=== PATIENT | male | born 1945 | race Caucasian/White ===

== ENCOUNTER 2018-12-26 18:53 | Observation (INO) ==
--- OUTSIDE RECORDS SUMMARY | 2018-12-26 18:56 | External Medical Summary | Continuity of Care Document ---
:1945 Author Name Anup Russo Address Unavailable Unavailable , Care Team Providers Name Role Phone NonMNPG M.D. Unavailable [email or web address] Unavailable Unavailable Problems Insomnia (780.52) (G47.00) Aortic stenosis (424.1) (I35.0) Lichen planus (697.0) (L43.9) Right ventricular dilation (429.3) (I51.7) Allergies and Adverse Reactions No Known Drug Allergies (Allergy) Medications No Reported Medications Refills: 0 Procedures History of Cholecystectomy Status: Compl eted History of Hernia Repair Status: Complet ed Immunizations Immunizations not documented Plan of Treatment Planned Observations Planned Goals not documented Results No Known Results Results not documented
[2018-12-26] MEDS ORDERED: SODIUM CHLORIDE 0.9% 1000ML 1,000 ML IV SCH (19:15)
--- NOTE | 2018-12-26 19:32 | XRay Report ---
XR chest 1V portable CLINICAL HISTORY: weakness COMPARISON STUDY: No previous studies for comparison. FINDINGS: Lung volumes are normal. There is no pneumothorax or pleural effusion. There is no consolid ation to suggest pneumonia. Note is made of a right lower mediastinal contour abnormality. Otherwise, the cardiomediastinal silhouette is unremarkable. IMPRESSION: 1. Right lower mediastinal contour abnormality. This may reflect a hiatal hernia or artifact however a nonemergent chest CT is recommended. 2. No acute cardiopulmonary findings. Electronically signed by: Marcos Gu M.D. 12/26/2018 7:31 PM
[2018-12-26 19:36] LABS: Basophils # (auto) 0.03 K/uL (0-0.2); Basophils % (auto) 0.4 %; Eosinophils # (auto) 0.14 K/uL (0-0.5); Eosinophils % (auto) 2.1 %; Hemoglobin 14.7 g/dL (14.0-18.0); Immature Granulocytes # (auto) 0.01 K/uL (0.00-0.02); Immature Granulocytes % (auto) 0.1 %; Lymphocytes # (auto) 2.14 K/uL (1.2-3.4); Lymphocytes % (auto) 31.7 %; Mean Corpuscular Hgb Conc 35.9 g/dL (32-36); Mean Corpuscular Volume 90.1 fL (80-100); Mean Platelet Volume 9.5 fL (7.4-10.4); Monocytes # (auto) 0.67 K/uL (0.11-0.59); Monocytes % (auto) 9.9 %; Neutrophils # (auto) 3.76 K/uL (1.4-6.5); Neutrophils % (auto) 55.8 %; Platelet Count 179 K/uL (130-400); RDW Coefficient of Variation 13.3 % (11.5-14.5); RDW Standard Deviation 43.4 fL (36.4-46.3); Red Blood Count 4.55 M/uL (4.7-6.1); White Blood Count 6.75 K/uL (4.8-10.8)
[2018-12-26 19:49] LABS: Partial Thromboplastin Ratio 0.9; Partial Thromboplastin Time 25.6 Seconds (21.0-31.0); Prothrombin Time 10.6 Seconds (9.0-12.0)
[2018-12-26 19:58] LABS: Troponin I < 0.015 ng/ml (0-0.045)
--- NOTE | 2018-12-26 20:15 | Emergency Department Note ---
Entered by Beth Cote acting as a scribe for History of Present Illness General Chief complaint: Cardiac Assessment Stated complaint: CHEST PAIN, IRREGULAR HEARTBEAT, DIZZY Source: patient History of Present Illness Onset (ago): hour(s) 3 Location: head Pain Consistency: + other (persistent ) Quality: + other (dizziness) Relieved By: + other (laying down) Exacerbated By: + movement Associated symptoms: + other (positive feels heart beating heavily; negative swelling in legs; negative diarrhea; negative black or bloody stools) The patient is a 73 year old male who presents to the Emergency Room with complaints of persistent dizziness that began at 1630, 3 hours prior to arrival. The patient states that laying down relieves his symptoms, and states that movement exacerbates his symptoms. The patient states that at this time he felt his heart beating heavily in his chest. The patient denies chest pain, shortness of breath, swelling in his legs, nausea, vomiting, diarrhea, and black or bloody stools. The patient denies any recent illnesses. The patient states that he has a heart murmur, and states that he previously had an echo. Home Medications Home Medications Medication Instructions Recorded Confirmed Type calcium carbonate [Tums] 200 - 400 mg PO TID PRN 12/26/18 12/26/18 History cholecalciferol (vitamin D3) 1,000 unit PO DAILY 12/26/18 12/26/18 History [Vitamin D3] ciclopirox [Ciclodan] 1 applic TOPICAL DAILY 12/26/18 12/26/18 History multivitamin 1 tab PO DAILY 12/26/18 12/26/18 History naproxen [Naprosyn] 500 mg PO BID PRN 12/26/18 12/26/18 History omega 7-xoz-nye-fish oil [Fish Oil] 1 cap PO DAILY 12/26/18 12/26/18 History rosuvastatin [Crestor] 10 mg PO DAILY 12/26/18 12/26/18 History Allergies Allergy/AdvReac Type Severity Reaction Status Date / Time No Known Allergies Allergy Unverified 12/26/18 19:47 Past Med/Surg History Medical History Heart murmur (Chronic) Surgical History S/P hernia repair (Resolved) S/P cholecystectomy (Resolved) Social History Preferred Language: Northern Irish Smoking Status: Former smoker Review of Systems See HPI for pertinent positives & negatives. and A total of 10 systems reviewed and were otherwise negative Physical Exam Vital Signs Vital Signs - 24 hr 12/26/18 18:53 12/26/18 18:56 12/26/18 19:11 Temperature 36.3 C L Temperature Source Oral Sepsis Recent Fever Within 48 Hours No Sepsis New/Unexplained Change in Mental Status No Sepsis Action Taken by Nursing No Action Required Pulse Rate 118 H Pulse Rate [Left Finger] Pulse Rhythm [Left Finger] Respiratory Rate 18 Respiratory Effort / Characteristics Non-Labored Respiratory Depth Normal Respiratory Pattern Blood Pressure 127/82 Blood Pressure [Left Arm] Blood Pressure Mean 97 Blood Pressure Mean [Left Arm] Pulse Oximetry 99 98 Oxygen Delivery Method Room Air Room Air Room Air 12/26/18 19:30 12/26/18 20:09 12/26/18 21:33 Temperature Temperature Source Sepsis Recent Fever Within 48 Hours Sepsis New/Unexplained Change in Mental Status Sepsis Action Taken by Nursing Pulse Rate Pulse Rate [Left Finger] 60 70 54 L Pulse Rhythm [Left Finger] Regular Regular Respiratory Rate 20 15 15 Respiratory Effort / Characteristics Non-Labored Non-Labored Non-Labored Respiratory Depth Normal Normal Normal Respiratory Pattern Regular Regular Regular Blood Pressure Blood Pressure [Left Arm] 115/85 110/73 106/73 Blood Pressure Mean Blood Pressure Mean [Left Arm] 95 85 84 Pulse Oximetry 100 100 100 Oxygen Delivery Method Room Air Room Air Room Air 12/26/18 22:46 12/26/18 23:32 Temperature Temperature Source Sepsis Recent Fever Within 48 Hours Sepsis New/Unexplained Change in Mental Status Sepsis Action Taken by Nursing Pulse Rate 71 Pulse Rate [Left Finger] 67 Pulse Rhythm [Left Finger] Regular Respiratory Rate 18 18 Respiratory Effort / Characteristics Non-Labored Respiratory Depth Normal Respiratory Pattern Regular Blood Pressure 112/75 Blood Pressure [Left Arm] 101/65 Blood Pressure Mean Blood Pressure Mean [Left Arm] 77 Pulse Oximetry 100 99 Oxygen Delivery Method Room Air Room Air GENERAL: Patient is awake alert in no acute distress patient is resting comfortably and showing no signs of anxiety EYES: The conjunctivae are clear. The pupils are round and reactive. EARS, NOSE, MOUTH AND THROAT: The nose is without any evidence of any deformity. Mucous membranes are moist tongue is midline NECK: The neck is nontender and supple. RESPIRATORY: Normal respiratory effort is noted there is no evidence of wheezing rhonchi or rales CARDIOVASCULAR: Irregular rhythm with tachycardic rate was noted. There was a systolic murmur suggested. GASTROINTESTINAL: The abdomen is soft. Bowel sounds are present in all quadrants. Abdomen is nontender MUSCULOSKELETAL/EXTREMITIES: There is no evidence of gross deformity full range of motion is noted in the hips and shoulders SKIN: There is no obvious evidence of any rash. Trace pedal edema was noted bilaterally. Skin was warm and dry. NEUROLOGIC: Patient is awake alert and oriented x3. Course 1910: The patient was evaluated in room A12A, and a complete history and physical examination were performed. 2133: I updated the patient and his family. 2147: I discussed the case with Dr. Pacheco-[facility] Cardiology. 2207: I discussed the case with Dr. Rosas-[facility] Hospitalist who accepts the patient for further evaluation. 4: I updated the patient and his family. Administered Medications Discontinued Medications Sodium Chloride (Nss 1000ml) 1,000 mls @ 999 mls/hr IV .Q1H1M NAI Stop: 12/26/18 20:15 Last Infusion: 12/26/18 20:20 Dose: 0 mls/hr Documented by: [id number] Admin: 12/26/18 19:30 Dose: 999 mls/hr Documented by: [id number] Medical Decision Making Differential Diagnosis Differential diagnosis: Etiologies such as premature contractions, electrolyte abnormality, cardiac dysrhythmia, thyroid dysfunction, pulmonary embolism, infection, gastrointestinal, as well as others were entertained. Medical Records Attestation: I reviewed the patient's medical records. Home Medications Current Medication List: was personally reviewed by me Laboratory Data Attestation: I reviewed the patient's lab results. Result diagrams: 12/26/18 19:12/26/18 19: Lab Results 12/26/18 12/26/18 12/26/18 Range/Units 19: 19:27 19:27 WBC 6.75 (4.8-10.8) K/uL RBC 4.55 L (4.7-6.1) M/uL Hgb 14.7 (14.0-18.0) g/dL Hct 41.0 L (42-52) % MCV 90.1 (80-100) fL MCH 32.3 (25-34) pg MCHC 35.9 (32-36) g/dL RDW Std Deviation 43.4 (36.4-46.3) fL RDW Coeff of Juan Carlos 13.3 (11.5-14.5) % Plt Count 179 (130-400) K/uL MPV 9.5 (7.4-10.4) fL Immature Gran % (Auto) 0.1 % Neut % (Auto) 55.8 % Lymph % (Auto) 31.7 % [place] % (Auto) 9.9 % Eos % (Auto) 2.1 % Baso % (Auto) 0.4 % Immature Gran # (Auto) 0.01 (0.00-0.02) K/uL Neut # (Auto) 3.76 (1.4-6.5) K/uL Lymph # (Auto) 2.14 (1.2-3.4) K/uL [place] # (Auto) 0.67 H (0.11-0.59) K/uL Eos # (Auto) 0.14 (0-0.5) K/uL Baso # (Auto) 0.03 (0-0.2) K/uL PT 10.6 (9.0-12.0) Seconds INR 1.0 (0.9-1.1) APTT 25.6 (21.0-31.0) Seconds PTT Ratio 0.9 Sodium 141 (136-145) mmol/L Potassium 3.7 (3.5-5.1) mmol/L Chloride 109 H (98-107) mmol/L Carbon Dioxide 26 (21-32) mmol/L Anion Gap 6.0 (3-11) BUN 16 (7-18) mg/dl Creatinine 1.18 (0.6-1.4) mg/dl Est Cr Clr Drug Dosing 55.8 ml/min Est GFR ( Amer) 69.5 Est GFR (Non-Af Amer) 60.0 BUN/Creatinine Ratio 13.3 (10-20) Glucose 116 H (70-99) mg/dl Calcium 8.9 (8.5-10.1) mg/dl Magnesium 2.3 (1.8-2.4) mg/dl Total Bilirubin 0.4 (0.2-1) mg/dl AST 30 (15-37) U/L ALT 28 (12-78) U/L Alkaline Phosphatase 81 (45-117) U/L Troponin I < 0.015 (0-0.045) ng/ml Total Protein 6.6 (6.4-8.2) gm/dl Albumin 3.7 (3.4-5.0) gm/dl Globulin 2.8 (2.5-4.0) gm/dl Albumin/Globulin Ratio 1.3 (0.9-2) TSH 1.700 (0.300-4.500) uIu/ml Urine Color Urine Appearance (Clear) Urine pH (4.5-7.5) Ur Specific [place] (1.000-1.030) Urine Protein (Negative) Urine Glucose (UA) (Negative) Urine Ketones (Negative) Urine Blood (Negative) Urine Nitrite (Negative) Urine Bilirubin (Negative) Urine Urobilinogen (Negative) Ur Leukocyte Esterase (Negative) 12/26/18 Range/Units 20:19 WBC (4.8-10.8) K/uL RBC (4.7-6.1) M/uL Hgb (14.0-18.0) g/dL Hct (42-52) % MCV (80-100) fL MCH (25-34) pg MCHC (32-36) g/dL RDW Std Deviation (36.4-46.3) fL RDW Coeff of [place] (11.5-14.5) % Plt Count (130-400) K/uL MPV (7.4-10.4) fL Immature Gran % (Auto) % Neut % (Auto) % Lymph % (Auto) % [place] % (Auto) % Eos % (Auto) % Baso % (Auto) % Immature Gran # (Auto) (0.00-0.02) K/uL Neut # (Auto) (1.4-6.5) K/uL Lymph # (Auto) (1.2-3.4) K/uL [place] # (Auto) (0.11-0.59) K/uL Eos # (Auto) (0-0.5) K/uL Baso # (Auto) (0-0.2) K/uL PT (9.0-12.0) Seconds INR (0.9-1.1) APTT (21.0-31.0) Seconds PTT Ratio Sodium (136-145) mmol/L Potassium (3.5-5.1) mmol/L Chloride (98-107) mmol/L Carbon Dioxide (21-32) mmol/L Anion Gap (3-11) BUN (7-18) mg/dl Creatinine (0.6-1.4) mg/dl Est Cr Clr Drug Dosing ml/min Est GFR ( Amer) Est GFR (Non-Af Amer) BUN/Creatinine Ratio (10-20) Glucose (70-99) mg/dl Calcium (8.5-10.1) mg/dl Magnesium (1.8-2.4) mg/dl Total Bilirubin (0.2-1) mg/dl AST (15-37) U/L ALT (12-78) U/L Alkaline Phosphatase (45-117) U/L Troponin I (0-0.045) ng/ml Total Protein (6.4-8.2) gm/dl Albumin (3.4-5.0) gm/dl Globulin (2.5-4.0) gm/dl Albumin/Globulin Ratio (0.9-2) TSH (0.300-4.500) uIu/ml Urine Color Yellow Urine Appearance Clear (Clear) Urine pH 7.0 (4.5-7.5) Ur Specific [place] 1.012 (1.000-1.030) Urine Protein Negative (Negative) Urine Glucose (UA) Negative (Negative) Urine Ketones Negative (Negative) Urine Blood Negative (Negative) Urine Nitrite Negative (Negative) Urine Bilirubin Negative (Negative) Urine Urobilinogen Negative (Negative) Ur Leukocyte Esterase Negative (Negative) Imaging Data Radiologist's Impression: Radiology results as stated below per my review and the radiologist's interpretation: XR chest 1V portable CLINICAL HISTORY: weakness COMPARISON STUDY: No previous studies for comparison. FINDINGS: Lung volumes are normal. There is no pneumothorax or pleural effusion. There is no consolidation to suggest pneumonia. Note is made of a right lower mediastinal contour abnormality. Otherwise, the cardiomediastinal silhouette is unremarkable. IMPRESSION: 1. Right lower mediastinal contour abnormality. This may reflect a hiatal hernia or artifact however a nonemergent chest CT is recommended. 2. No acute cardiopulmonary findings. Electronically signed by: Marcos Gu M.D. 12/26/2018 7:31 PM ECG Data Attestation: I personally reviewed and interpreted this ECG as follows: Indication: palpitations Rate (beats per minute): 124 Rhythm: atrial fibrillation Findings: + ST depression (lateral ); no ectopy Comparison ECG Date: from (06/12/1996) Change: the following changes noted (ST depressions new) Additional Comments: Repeat ECG: Sinus bradycardia with a rate of 57. No ectopy. No acute ST segment abnormalities. Blood Pressure Blood Pressure Findings: Normal blood pressure MDM Narrative The patient is a 73-year-old male who presented to the emergency department for an evaluation of dizziness and palpitations. The patient was found to be in rapid atrial fibrillation. He had very significant symptoms with his atrial fibrillation. He was treated with IV fluids in the emergency department. He had good resolution of his symptoms. He started to become bradycardic. The patient's blood pressure was not extremely high. I discussed the patient's laboratory and radiographic studies with him and his family members. I also discussed his case with the on-call [facility] lapping machine operator. At this time a very concerned given the patient's symptoms as well as his relative bradycardia and hypotension. It does appear that the patient may require rate control medications as well as anticoagulation. It is also possible he is having tachybradycardia syndrome given his current findings. Given these possibilities I discussed his case with the on-call [facility] hospitalist. They have agreed to evaluate the patient in the emergency department for further management and disposition. I did discuss the possibility with the patient that he may require anticoagulation as well as rate control medications in the near future. Impression & Plan Paroxysmal A-fib, Atrial fibrillation, rapid Discharge Plan Visit Data Chief Complaint: Cardiac Assessment Stated Complaint: CHEST PAIN, IRREGULAR HEARTBEAT, DIZZY ED Provider: Jorge Kirkland Discharge Problem: Paroxysmal A-fib, Atrial fibrillation, rapid Patient Disposition: Being Evaluated by Hospitalist Discharge Instructions Interventions: ED Discharge Assessment Last Done: 12/26/18 23:32 Forms Stand Alone Forms: [facility] Prescriptions Prescriptions: No Action multivitamin Tablet 1 tab PO DAILY RF: 0 calcium carbonate [Tums] 200 mg calcium (500 mg) Tablet,Chewable 200 - 400 mg PO TID PRN (Reason: Acid Reflux) RF: 0 naproxen [Naprosyn] 500 mg tablet 500 mg PO BID PRN (Reason: Pain) RF: 0 cholecalciferol (vitamin D3) [Vitamin D3] 1,000 unit Capsule 1,000 unit PO DAILY RF: 0 ciclopirox [Ciclodan] 0.77 % cream 1 applic topical DAILY RF: 0 rosuvastatin [Crestor] 10 mg tablet 10 mg PO DAILY RF: 0 omega 6-qwh-usv-fish oil [Fish Oil] 1,000 mg (120 mg-180 mg) Capsule 1 cap PO DAILY RF: 0 Referrals Referrals: Jorje Reilly [Primary Care Provider] - The scribe's documentation has been prepared under my direction and personally reviewed by me in its entirety. I confirm that the note above accurately reflect s all work, treatment, procedures, and medical decision making performed by me.
[2018-12-26 20:44] LABS: Albumin Level 3.7 gm/dl (3.4-5.0); Calcium 8.9 mg/dl (8.5-10.1); Carbon Dioxide 26 mmol/L (21-32); Chloride 109 mmol/L (98-107); Magnesium 2.3 mg/dl (1.8-2.4); Potassium 3.7 mmol/L (3.5-5.1); Sodium 141 mmol/L (136-145)
[2018-12-26 20:45] LABS: Alanine Aminotransferase 28 U/L (12-78); Aspartate Aminotransferase 30 U/L (15-37); BUN Creatinine Ratio 13.3 (10-20); Blood Urea Nitrogen 16 mg/dl (7-18); Creatinine Clr Calc Pharmacy 55.8 ml/min; Est GFR (African American) 69.5; Glucose 116 mg/dl (70-99)
[2018-12-26 20:53] LABS: Appearance Urine Clear (Clear); Bilirubin Urine Negative (Negative); Blood Urine Negative (Negative); Color Urine Yellow; Glucose Urine UA Negative (Negative); Ketones Urine Negative (Negative); Leukocyte Esterase Urine Negative (Negative); Nitrite Urine Negative (Negative); Protein Urine Negative (Negative); Specific Gravity Urine 1.012 (1.000-1.030); Urobilinogen Urine Negative (Negative)
[2018-12-26 20:54] LABS: Albumin Globulin Ratio 1.3 (0.9-2); Alkaline Phosphatase 81 U/L (45-117); Bilirubin,Total 0.4 mg/dl (0.2-1); Globulin 2.8 gm/dl (2.5-4.0); Total Protein 6.6 gm/dl (6.4-8.2)
[2018-12-27] MEDS ORDERED: ACETAMINOPHEN 325 MG TAB PO PRN (00:46)
[2018-12-27] MEDS ORDERED: SODIUM CHLORIDE 0.9% 1000ML 1,000 ML IV SCH (00:46)
[2018-12-27] MEDS ORDERED: ASPIRIN 81 MG ECTAB PO STA (00:46)
[2018-12-27] MEDS ORDERED: ENOXAPARIN INJ 40 MG/0.4 ML SYR SQ ONE (01:08)
--- NOTE | 2018-12-27 01:27 | History & Physical Report ---
Date of Service December 27, 2018 Assessment & Plan (1) Atrial fibrillation, rapid: 73-year-old male with a past medical history of hyperlipidemia, aortic stenosis, osteoarthritis presents with dizziness and palpitations. Patient was found to be in A. fib with RVR in the emergency room. Patient received a fluid bolus and the A. fib resolved. In the ED, the patient had a asymptomatic bradycardia. The case was discussed with cardiology who recommended that the patient be admitted and observed. Patient denies chest pain, shortness of breath and lower extremity swelling. He endorses a healthy active lifestyle. He denies recent viral symptoms and he states that he tries to stay well-hyd rated. He has been more busy lately with yard work. He is a non-smoker, no known coronary artery disease, denies history of diabetes. He has been seen before by Dr. Lockwood for a heart murmur. Echocardiogram in May 2018 showed mild to moderate aortic stenosis, but an otherwise healthy heart with an ejection fraction of 65%. No history of blood clots, no history of GI bleed. Paroxysmal atrial fibrillation Observing on telemetry Cardiology consulted Continue IV fluids normal saline at 100 cc/h Chadsvasc 2 based on agestarting daily aspirin Aortic stenosis Mild to moderate Echo May 2018 showed an EF of 65%, mild to moderate aortic stenosis (stable) and right ventricular dilation Dr. Lockwood commented that ventricular dilation was likely a sign of healthy athletic heart Hyperlipidemia Continue Crestor DVT prophylaxis Daily Lovenox CODE STATUS Full Present on Admission?: Yes (2) Hyperlipidemia: (3) Heart murmur: (4) Paroxysmal A-fib: History of Present Illness Patient is non-smoker no history Primary Care Provider: Jorje Tommie 73-year-old male with a past medical history of hyperlipidemia, aortic stenosis, osteoarthritis presents with dizziness and palpitations. Patient was found to be in A. fib with RVR in the emergency room. Patient received a fluid bolus and the A. fib resolved. In the ED, the patient had a asymptomatic bradycardia. The ED physician discussed the case with cardiology who recommended that the patient be admitted and observed. Patient denies chest pain, shortness of breath and lower extremity swelling. He endorses a healthy active lifestyle. He is a non-smoker, no known coronary artery disease, denies history of diabetes. He has been seen before by Dr. Lockwood for a heart murmur. Echocardiogram in May 2018 showed mild to moderate aortic stenosis, but an otherwise healthy heart with an ejection fraction of 65%. No history of blood clots, no history of GI bleed. Review of systems Constitutional; no fevers, chills, night sweats CV; no chest pain, shortness of breath, no palpitations at the moment Pulmonary; shortness of breath, no cough, no wheezing Abdomen; no abdominal pain, nausea/vomiting/diarrhea Allergies Allergy/AdvReac Type Severity Reaction Status Date / Time No Known Allergies Allergy Unverified 12/26/18 19:47 Home Medications Home Medications Medication Instructions Recorded Confirmed Type calcium carbonate [Tums] 200 - 400 mg PO TID PRN 12/26/18 12/26/18 History cholecalciferol (vitamin D3) 1,000 unit PO DAILY 12/26/18 12/26/18 History [Vitamin D3] ciclopirox [Ciclodan] 1 applic TOPICAL DAILY 12/26/18 12/26/18 History multivitamin 1 tab PO DAILY 12/26/18 12/26/18 History naproxen [Naprosyn] 500 mg PO BID PRN 12/26/18 12/26/18 History omega 1-rha-ros-fish oil [Fish Oil] 1 cap PO DAILY 12/26/18 12/26/18 History rosuvastatin [Crestor] 10 mg PO DAILY 12/26/18 12/26/18 History aspirin, buffered 325 mg PO DAILY #90 tab 12/27/18 Rx metoprolol tartrate 25 mg PO DAILY PRN #20 tab 12/27/18 Rx Past Med/Surg History Medical History Heart murmur (Chronic) Surgical History S/P hernia repair (Resolved) S/P cholecystectomy (Resolved) Social History Preferred Language: Hebrew Communication Ability: Effective Beliefs That Will Affect Care: None Current Living Situation: Spouse Other Information That Helps Us Care for You: No Feels Safe at Home: Yes Safety Concerns: Feels Safe At This Time Smoking Status: Never smoker Do You Dip or Chew Tobacco: No Hx Alcohol Use: No Hx Substance Use: No Review of Systems Review of Systems: All systems reviewed & are unremarkable except as noted in HPI & below Physical Exam Constitutional: WD/WN, vitals as above Eyes: PERRL, conjunctivae normal, anicteric sclerae ENMT: external ear and nose normal, oropharynx normal Neck: trachea midline, no thyromegaly Respiratory: normal respiratory effort, lungs clear to auscultation Cardiovascular: Rate/Rhythm: regular rate and regular rhythm Heart Sounds: + murmur (2 out of 6 systolic ejection murmur) Gastrointestinal (Abdomen): normal bowel sounds, soft, nontender, no hepatosplenomegaly Musculoskeletal: no cyanosis or clubbing, extremities motor strength 5/5 Skin: no rashes, warm and dry Neurologic: PERRL, EOMI, accommodation nl, no face palsy, no dysarthria Psychiatric: A+Ox3, euthymic affect Results & Data Vital Signs (Past 12 Hours) Vital Signs Temp Pulse Pulse Resp BP BP Pulse Ox 12/27/18 00:16 36.5 C 64 18 102/69 99 12/26/18 23:32 71 18 112/75 99 12/26/18 22:46 67 18 101/65 100 12/26/18 21:33 54 L 15 106/73 100 12/26/18 20:09 70 15 110/73 100 12/26/18 19:30 60 20 115/85 100 12/26/18 19:11 98 12/26/18 18:56 36.3 C L 118 H 18 127/82 99 Code Status & VTE Plan Code Status Full code VTE Prophylaxis Plan VTE Prophylaxis will be ordered: Yes Supervising Physician Co-Signing Physician Notes Attending addendum: I have physically seen this patient, have supervised the medical residents activities, and agree with the H&P unless as otherwise noted. Assessment and Plan: Paroxysmal age fibrillation with RVR/mild to moderate aortic stenosis- The patient will be admitted to telemetry for serial cardiac enzymes, serial EKG's, cardiac rhythm monitoring and a 2-D echocardiogram with Dopplers. Resolved with 1 L of normal saline. Continue NSS at 100 mils per hour. EF noted to be 65% on echo of May 2018 Aspirin 81 mg p.o. daily. Consult cardiology. Remainder of orders and notations as noted. Resident Activity Tracking Resident Involvement: Resident Care Provided Care Provided: [facility] [place] [facility]
--- NOTE | 2018-12-27 07:57 | Hospitalist Progress Note ---
Date of Service December 27, 2018 Assessment & Plan (1) Atrial fibrillation, rapid: 73-year-old male with a past medical history of hyperlipidemia, aortic stenosis, osteoarthritis presents with dizziness and palpitations. Patient was found to be in A. fib with RVR in the emergency room. Patient received a fluid bolus and the A. fib resolved. In the ED, the patient had a asymptomatic bradycardia. The case was discussed with cardiology who recommended that the patient be admitted and observed. Patient denies chest pain, shortness of breath and lower extremity swelling. He endorses a healthy active lifestyle. He denies recent viral symptoms and he states that he tries to stay well-hyd rated. He has been more busy lately with yard work. He is a non-smoker, no known coronary artery disease, denies history of diabetes. He has been seen before by Dr. Lockwood for a heart murmur. Echocardiogram in May 2018 showed mild to moderate aortic stenosis, but an otherwise healthy heart with an ejection fraction of 65%. No history of blood clots, no history of GI bleed. Paroxysmal atrial fibrillation Observing on telemetry Cardiology consulted Continue IV fluids normal saline at 100 cc/h Chadsvasc 2 based on agestarting daily aspirin Aortic stenosis Mild to moderate Echo May 2018 showed an EF of 65%, mild to moderate aortic stenosis (stable) and right ventricular dilation Dr. Brown commented that ventricular dilation was likely a sign of healthy athletic heart Hyperlipidemia Continue Crestor DVT prophylaxis Daily Lovenox CODE STATUS Full (2) Hyperlipidemia: (3) Heart murmur: (4) Paroxysmal A-fib: Results & Data Vital Signs (Past 12 Hours) Vital Signs Temp Pulse Pulse Resp BP BP BP 12/27/18 07:00 36.8 C 59 L 18 123/77 12/27/18 03:39 36.9 C 56 L 16 107/70 12/27/18 00:30 57 L 12/27/18 00:16 36.5 C 64 18 102/69 12/26/18 23:32 71 18 112/75 12/26/18 22:46 67 18 101/65 12/26/18 21:33 54 L 15 106/73 12/26/18 20:09 70 15 110/73 Pulse Ox 12/27/18 07:00 99 12/27/18 03:39 98 12/27/18 00:30 12/27/18 00:16 99 12/26/18 23:32 99 12/26/18 22:46 100 12/26/18 21:33 100 12/26/18 20:09 100
[2018-12-27] MEDS ORDERED: ROSUVASTATIN CALCIUM 10 MG TAB PO SCH (09:00)
[2018-12-27] MEDS ORDERED: ASPIRIN 81 MG ECTAB PO SCH (09:00)
[2018-12-27] MEDS ORDERED: METOPROLOL TARTRATE 25 MG TAB PO PRN (09:55)
--- NOTE | 2018-12-27 10:22 | Consultation Report ---
DATE OF CONSULTATION: 12/27/2018 REQUESTING: Dr. Jero Zazueta. OWNER PROFESSIONAL ENGINEER: Arturo Lockwood DO, [facility] REASON FOR CONSULTATION: Symptomatic paroxysmal atrial fibrillation. Dear Raymond: Thank you for requesting cardiology consultation on Henry with regards to his single episode of atrial fibrillation. As you know, he is an incredibly active 73-year-old who does not look his stated age. He is known to have qlkj-dr-bpgsizql aortic stenosis with severe left atrial enlargement and an ejection fraction in the range of 65%. He notes yesterday afternoon he was doing his normal yard work. All of a sudden he felt lightheaded and dizzy and felt his heart racing and it was very erratic. He had never felt anything like this before, and in retrospect, he denies any episodes either. His tried to take his blood pressure with automatic cuff, which was unable to determine his heart rate and blood pressure. Given his symptoms, he came to the Emergency Room where he was found to be in atrial fibrillation with a rapid ventricular response. Overnight, he converted back to sinus rhythm. His heart rates are in the high 40s to low 60s. He is in very good aerobic shape. He denies any specific triggers. He denies symptoms of sleep apnea. He denies any alcohol consumption over the weekend. He did not eat anything unusual. He notes he does not sleep well, but this has been a chronic problem for him. He denies any dark stools or black stools, bleeding or bruising. He denies any chest pain, chest pressure, chest heaviness. He can climb a flight of stairs. He pushes the lawnmower by hand for 45 minutes. He just mulched all of his flower beds with 5 cubic yards of mulch without any issues. His functional capacity is stable and he is in markedly better shape than most men his age. PAST MEDICAL HISTORY: 1. Mbti-ng-ltowidks aortic stenosis. 2. Paroxysmal atrial fibrillation with a single episode in 11/2018 and a CHADS2-VASc score of 2, that being his age. 3. Hyperlipidemia. 4. Severe left atrial enlargement. 5. History of hernia repair. 6. Cholecystectomy. FAMILY HISTORY: Noncontributory. SOCIAL HISTORY: He is . He is a lifetime nonsmoker. He denies any alcohol. He is retired. MEDICATIONS: Reviewed in detail. ALLERGIES: No known drug allergies. PHYSICAL EXAMINATION: GENERAL: He is awake, alert, oriented x3. He is in no acute distress. He is a well-appearing male who looks younger than his stated age. VITAL SIGNS: His heart rate is 59, blood pressure 123/77, respirations 18, sat 99%. HEENT: 2+ carotid upstrokes. No evidence of carotid bruits. Jugular venous pressure appeared normal. Sclerae is anicteric. Hearing is normal. LUNGS: Clear to auscultation bilaterally. No rales, rhonchi or wheezing. HEART: Regular rate and rhythm. There is a 2/6 crescendo-decrescendo murmur, which is early to mid peaking. There were no appreciable diastolic murmurs. ABDOMEN: Soft, nontender, nondistended. Positive bowel sounds. EXTREMITIES: No clubbing, cyanosis or edema. PSYCHIATRIC: His affect appeared appropriate. DIAGNOSTIC STUDIES: Discussed above. His complete metabolic profile was normal with the exception of his glucose of 116. His troponins are negative. His TSH is normal. His CBC is normal. Chest x-ray is normal. EKGs initial atrial fibrillation with a rapid ventricular response and a 124 beats per minute, nonspecific ST changes. EKG, 12/26/2018 at 20:39, sinus bradycardia at 57 beats per minute. The ST changes have resolved. IMPRESSION: 1. Single episode of paroxysmal atrial fibrillation with a CHADS2-VASc score of 2. 2. Severe left atrial enlargement. 3. Lzec-nt-dlhpqvhc aortic stenosis. 4. Preserved left ventricular systolic function. 5. Significant bradycardia at rest on no AV leslie blockers and in remarkably good shape for his age. As I discussed with his family with a single episode that was short lived, I would discharge him on aspirin 325 mg daily. We will give him metoprolol to use as a pill in a pocket, 25 mg of metoprolol tartrate. I am reluctant at this point to give him beta blockers on a regular basis given his relative bradycardia. I did discuss with Henry in essence if he has more atrial fibrillation, he has tachybrady syndrome, the only antiarrhythmic that would have the least impact on his sinus node, would be Tikosyn, which would require 3 days in the hospital. If he were to continue to have arrhythmias that are uncontrollable then at that point, options include an AFib ablation and/or pacemaker implantation, such that we can increase his AV leslie blockers to reduce his risk of atrial fibrillation without causing significant bradycardia. All this was discussed with his family in detail as well as the hospitalist service. Thank you for allowing us to participate in his care. FAISAL
--- NOTE | 2018-12-27 19:36 | Discharge Summary ---
Date of Service December 27, 2018 Admission HPI Per Admitting Provider 73-year-old male with a past medical history of hyperlipidemia, aortic stenosis, osteoarthritis presents with dizziness and palpitations. Patient was found to be in A. fib with RVR in the emergency room. Patient received a fluid bolus and the A. fib resolved. In the ED, the patient had a asymptomatic bradycardia. The ED physician discussed the case with cardiology who recommended that the patient be admitted and observed. Patient denies chest pain, shortness of breath and lower extremity swelling. He endorses a healthy active lifestyle. He is a non-smoker, no known coronary artery disease, denies history of diabetes. He has been seen before by Dr. Lockwood for a heart murmur. Echocardiogram in May 2018 showed mild to moderate aortic stenosis, but an otherwise healthy heart with an ejection fraction of 65%. No history of blood clots, no history of GI bleed. Review of systems Constitutional; no fevers, chills, night sweats CV; no chest pain, shortness of breath, no palpitations at the moment Pulmonary; shortness of breath, no cough, no wheezing Abdomen; no abdominal pain, nausea/vomiting/diarrhea Principal Diagnosis atiral fibrillation resolved Discharge Exam Constitutional well developed and average body habitus Eyes no conjunctival abnormality and no scleral abnormality Neck normal visual inspection and trachea midline Respiratory normal respiratory effort; no respiratory distress Auscultation: lungs clear to auscultation bilaterally Cardiovascular RRR, no murmur, no edema Gastrointestinal (Abdomen) normal bowel sounds, soft, nontender, no hepatosplenomegaly Musculoskeletal no cyanosis or clubbing, extremities motor strength 5/5 Discharge Data Allergies Allergy/AdvReac Type Severity Reaction Status Date / Time No Known Allergies Allergy Unverified 12/26/18 19:47 Consultations 12/26/18 22:09 ED Decision to Admit Stat 12/27/18 00:46 Consult Cardiology Routine Hospital Course (1) Atrial fibrillation, rapid: 73-year-old male with a past medical history of hyperlipidemia, aortic stenosis, osteoarthritis presents with dizziness and palpitations. Patient was found to be in A. fib with RVR in the emergency room. Patient received a fluid bolus and the A. fib resolved. In the ED, the patient had a asymptomatic bradycardia. The case was discussed with cardiology who recommended that the patient be admitted and observed. Patient denies chest pain, shortness of breath and lower extremity swelling. He endorses a healthy active lifestyle. He denies recent viral symptoms and he states that he tries to stay well- hydrated. He has been more busy lately with yard work. He is a non-smoker, no known coronary artery disease, denies history of diabetes. He has been seen before by Dr. Lockwood for a heart murmur. Echocardiogram in May 2018 showed mild to moderate aortic stenosis, but an otherwise healthy heart with an ejection fraction of 65%. No history of blood clots, no history of GI bleed. Paroxysmal atrial fibrillation spontaneously resolved, Cardiology consulted, recommend daily aspirin for embolic prevention and " pill in a pocket" metoprolol prn for rapid heart rate if it returns will have close outpt follow up Chadsvasc 2 based on agestarting daily aspirin Aortic stenosis Mild to moderate Echo May 2018 showed an EF of 65%, mild to moderate aortic stenosis (stable) and right ventricular dilation Dr. Lockwood commented that ventricular dilation was likely a sign of healthy athletic heart Hyperlipidemia Continue Crestor CODE STATUS Full (2) Hyperlipidemia: (3) Heart murmur: (4) Paroxysmal A-fib: Total Time Total Time Spent Total Time Spent (In Minutes): greater than 30 minutes were required to prepare discharge Discharge Plan Discharge Items Patient Disposition: Home - Self-Care Reason For Visit: ATRIAL FIBRILLATION Discharge Diagnosis: atrial fibrillation, return to normal rhythm but slow rate at times Discharge Goals: Decrease discomfort Activity: Resume your previous activity Non-emergency contact: Primary Care Provider and Farm Equipment Technician Call non-emergency contact if: you have any medication questions Follow-up/Referrals: Jorje Reilly [Primary Care Provider] - Diet: Regular Addtl Provider Instructions: please keep well hydrated, please always have one or two metoprolol pills with you, and take one if you have heart rate >120 beats per minute or otherwise instructed by Dr Cloud office Prescriptions: New metoprolol tartrate 25 mg Tablet 25 mg PO DAILY PRN (Reason: heart rate greater than 120 bpm) Qty: 20 RF: 0 aspirin, buffered 325 mg tablet 325 mg PO DAILY Qty: 90 RF: 0 Continued multivitamin Tablet 1 tab PO DAILY RF: 0 calcium carbonate [Tums] 200 mg calcium (500 mg) Tablet,Chewable 200 - 400 mg PO TID PRN (Reason: Acid Reflux) RF: 0 naproxen [Naprosyn] 500 mg tablet 500 mg PO BID PRN (Reason: Pain) RF: 0 cholecalciferol (vitamin D3) [Vitamin D3] 1,000 unit Capsule 1,000 unit PO DAILY RF: 0 ciclopirox [Ciclodan] 0.77 % cream 1 applic topical DAILY RF: 0 rosuvastatin [Crestor] 10 mg tablet 10 mg PO DAILY RF: 0 omega 2-vbc-gfr-fish oil [Fish Oil] 1,000 mg (120 mg-180 mg) Capsule 1 cap PO DAILY RF: 0 Stand-Alone Forms: [facility] Discharge Orders: Discharge Order (Routine); Ordered 12/27/18 Ordered By: Jero Zazueta Admission Data Admit Date/Time: 12/26/18 23:07 Attending Provider: Jero Zazueta Admit Provider: Jorje Bryant Primary Care Provider: Jorje Reilly Other Providers: Juancarlos Rosas ; Jorge Simon Service: Telemetry Other Interventions: Discharge Summary Assessment (RN) Last Done: 12/27/18 10:46 DC Date/Time DO NOT enter until pt leaves facility: 12/27/18 11:21
[2018-12-28] MEDS ORDERED: ENOXAPARIN INJ 40 MG/0.4 ML SYR SQ SCH (09:00)
--- NOTE | 2019-01-02 10:17 | Cardiology Consultation ---
Date of Consultation This is an addendum to my initial consultation. In addition to the HPI the rest of a complete review of symptoms is otherwise negative. January 02, 2019 History of Present Illness Attending Physician: Jero Zazueta MD Allergies Allergy/AdvReac Type Severity Reaction Status Date / Time No Known Allergies Allergy Unverified 12/26/18 19:47 Home Medications Home Medications Medication Instructions Recorded Confirmed Type calcium carbonate [Tums] 200 - 400 mg PO TID PRN 12/26/18 12/26/18 History cholecalciferol (vitamin D3) 1,000 unit PO DAILY 12/26/18 12/26/18 History [Vitamin D3] ciclopirox [Ciclodan] 1 applic TOPICAL DAILY 12/26/18 12/26/18 History multivitamin 1 tab PO DAILY 12/26/18 12/26/18 History naproxen [Naprosyn] 500 mg PO BID PRN 12/26/18 12/26/18 History omega 4-fta-xud-fish oil [Fish Oil] 1 cap PO DAILY 12/26/18 12/26/18 History rosuvastatin [Crestor] 10 mg PO DAILY 12/26/18 12/26/18 History aspirin, buffered 325 mg PO DAILY #90 tab 12/27/18 Rx metoprolol tartrate 25 mg PO DAILY PRN #20 tab 12/27/18 Rx Patient History Medical History Heart murmur (Chronic) Surgical History S/P hernia repair (Resolved) S/P cholecystectomy (Resolved) Social History Preferred Language: Togolese Communication Ability: Effective Beliefs That Will Affect Care: None Current Living Situation: Spouse Other Information That Helps Us Care for You: No Feels Safe at Home: Yes Safety Concerns: Feels Safe At This Time Smoking Status: Never smoker Do You Dip or Chew Tobacco: No Hx Alcohol Use: No Hx Substance Use: No
== END 2018-12-27 11:21 | disposition home or self-care (01) ==
LOC: 2S 18:53 → ED 18:53 → SUATTDRO 23:07 → 2S 23:32